=== PATIENT | female | born 1945 | race Native Hawaiian/Other Pacific Islander ===

== ENCOUNTER 2018-01-31 09:37 | Outpatient (CLI) | payer OTHER | END 2018-01-31 21:23 | disposition home or self-care (01) | LOC: RAD 09:37 | DX: M85.89 Other specified disorders of bone density and structure, multiple sites (principal) ==

== ENCOUNTER 2019-07-16 18:25 | Emergency (ER) | payer OTHER ==
[~2019-07-16] VITALS: Ht 152.4 cm; Wt 72.6 kg
[2019-07-16 19:02] LABS: PLATELET COUNT 238 K/uL (152-353)
[2019-07-16 19:08] LABS: POTASSIUM 3.4 mmol/L (3.6-5.2)
[2019-07-16 19:36] LABS: PARTIAL THROMBOPLASTIN TIME 25.9 SECONDS (24.5-33.6)
[2019-07-16 20:38] VITALS: BP 142/76; TEMP 98.8
== END 2019-07-16 20:38 | disposition home or self-care (01) ==
LOC: ED 18:25
PROVIDERS: Hospitalist
DX: R51 Headache (principal); M54.2 Cervicalgia; S09.8XXA Other specified injuries of head, initial encounter; S16.1XXA Strain of muscle, fascia and tendon at neck level, initial encounter; W18.39XA Other fall on same level, initial encounter; Y92.89 Other specified places as the place of occurrence of the external cause
CPT/HCPCS: 80048; 85027; 85610; 85730; 93005; 96374; 96375; 99284; J1885; J2405

== ENCOUNTER 2021-08-16 08:48 | Outpatient (CLI) | payer OTHER | END 2021-08-16 20:06 | disposition home or self-care (01) | LOC: US 08:48 | PROVIDERS: ATTEND Internal Medicine | DX: R94.5 Abnormal results of liver function studies (principal) ==